=== PATIENT | female | born 2000 | race Caucasian/White ===

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

== ENCOUNTER 2022-01-15 22:47 | Emergency (ER) | payer OTHER ==
[2022-01-15 23:23] VITALS: BP 112/65; PULSE 95; RESP 20; TEMP 100.1; BMI 31.9
[2022-01-15] MEDS ORDERED: KETOROLAC TROMETHAMINE 15 MG/ML VIAL IVPUSH ONE (23:45)
[2022-01-15] MEDS ORDERED: LACTATED RINGERS SOLUTION 1000 ML INFUS.BAG IV ONE (23:45)
[2022-01-16 00:16] LABS: BASO % 0.7 % (0-2.0); EOS % 1.2 % (0-4.5); HEMATOCRIT 31.7 % (32.4-45.2); MCH 22.4 pg (25.7-33.7); MCHC 31.6 g/dl (32.0-36.0); MEAN CELL VOLUME 70.8 fl (80-96); MONO % 16.8 % (3.8-10.2); NEUT % 53.3 % (42.8-82.8); PLATELET COUNT 316 10^3/uL (134-434); RBC 4.48 M/mm3 (3.60-5.2); RDW 17.7 % (11.6-15.6); WHITE BLOOD COUNT 5.2 K/mm3 (4.0-10.0)
[2022-01-16 00:31] LABS: ALBUMIN 3.4 g/dl (3.4-5.0); BLOOD UREA NITROGEN 6.2 mg/dL (7-18); CALCIUM 8.9 mg/dL (8.5-10.1)
[2022-01-16 00:35] LABS: CREATININE 0.6 mg/dL (0.55-1.3)
[2022-01-16 00:37] LABS: BILIRUBIN,TOTAL 0.3 mg/dL (0.2-1)
[2022-01-16] MEDS ORDERED: KETOROLAC TROMETHAMINE 15 MG/ML VIAL ONE (00:39)
[2022-01-16] MEDS ORDERED: LIDOCAINE VISCOUS 2% ORAL/TOP 15 ML UNIT-DOSE CUP MM ONE (01:18)
[2022-01-16] MEDS ORDERED: MAG HYDROX/AL HYDROX/SIMETH 30 ML UNIT-DOSE CUP PO ONE (01:19)
[2022-01-16] MEDS ORDERED: LIDOCAINE VISCOUS 2% ORAL/TOP 15 ML UNIT-DOSE CUP ONE (01:24)
[2022-01-16] MEDS ORDERED: MAG HYDROX/AL HYDROX/SIMETH 30 ML UNIT-DOSE CUP ONE (01:25)
== END 2022-01-16 02:47 | disposition home or self-care (01) ==
LOC: JER 22:47
PROC: 3E033GC Introduction of Other Therapeutic Substance into Peripheral Vein, Percutaneous Approach (ICD-10-PCS; principal; 2022-01-15)
DX: J02.0 Streptococcal pharyngitis (principal); K12.30 Oral mucositis (ulcerative), unspecified
CPT/HCPCS: 0241U-QW; 36415; 71046-TC-FY; 80053; 84703; 85025; 87651; 93005; 93010; 99285-25

== ENCOUNTER 2022-04-19 12:16 | Emergency (ER) | payer OTHER ==
[2022-04-19 12:56] VITALS: BP 137/78; PULSE 114; RESP 22; TEMP 98.2; BMI 31.2
== END 2022-04-19 17:27 | disposition left against medical advice (07) ==
LOC: JER 12:16
DX: R07.9 Chest pain, unspecified (principal); F41.9 Anxiety disorder, unspecified
CPT/HCPCS: 93005; 93010; 99283-25

== ENCOUNTER 2022-09-03 12:05 | Emergency (ER) | payer OTHER ==
[2022-09-03] MEDS ORDERED: SODIUM CHLORIDE 0.9% 500 ML INFUS.BAG IV ONE (12:20)
[2022-09-03] MEDS ORDERED: ONDANSETRON 4 MG/2 ML VIAL IVPUSH ONE (12:20)
[2022-09-03 12:21] VITALS: TEMP 98.9; BMI 27.3
[2022-09-03] MEDS ORDERED: ONDANSETRON 4 MG/2 ML VIAL ONE (12:35)
[2022-09-03 13:22] LABS: BASO % 0.6 % (0-2.0); EOS % 1.7 % (0-4.5); HEMATOCRIT 30.5 % (32.4-45.2); HEMOGLOBIN 9.8 GM/dL (10.7-15.3); MCH 21.8 pg (25.7-33.7); MCHC 32.1 g/dl (32.0-36.0); MEAN CELL VOLUME 67.8 fl (80-96); MEAN PLT VOLUME 7.7 fl (7.5-11.1); MONO % 9.6 % (3.8-10.2); NEUT % 65.1 % (42.8-82.8); PLATELET COUNT 363 10^3/uL (134-434); RDW 18.5 % (11.6-15.6); WHITE BLOOD COUNT 7.7 K/mm3 (4.0-10.0)
[2022-09-03 13:40] LABS: POTASSIUM 3.9 mmol/L (3.5-5.1)
[2022-09-03 13:43] LABS: ALBUMIN 3.4 g/dl (3.4-5.0); BLOOD UREA NITROGEN 8.8 mg/dL (7-18); MAGNESIUM 2.3 mg/dL (1.8-2.4)
[2022-09-03 13:45] LABS: ANISOCYTOSIS 1+; MACROCYTOSIS 0
[2022-09-03 13:46] LABS: CREATININE 0.6 mg/dL (0.55-1.3)
[2022-09-03 13:47] LABS: BILIRUBIN,TOTAL 0.3 mg/dL (0.2-1); TOT PROT 7.4 g/dl (6.4-8.2)
[2022-09-03 13:48] LABS: LACTIC ACID 2.1 mmol/L (0.4-2.0)
[2022-09-03] MEDS ORDERED: LORazepam 2 MG/ML SDV VIAL IVPUSH ONE (14:58)
[2022-09-03 16:25] VITALS: BP 111/61; PULSE 68; RESP 12
== END 2022-09-03 16:54 | disposition home or self-care (01) ==
LOC: JER 12:05
PROC: 3E033NZ Introduction of Analgesics, Hypnotics, Sedatives into Peripheral Vein, Percutaneous Approach (ICD-10-PCS; principal; 2022-09-03)
PROC: 3E033GC Introduction of Other Therapeutic Substance into Peripheral Vein, Percutaneous Approach (ICD-10-PCS; 2022-09-03)
DX: R56.9 Unspecified convulsions (principal)
CPT/HCPCS: 36415; 80053; 82962; 83605; 83735; 84146; 84443; 84703; 85025; 93005; 93010; 99284-25

== ENCOUNTER 2023-01-17 15:01 | Emergency (ER) | payer OTHER ==
[2023-01-17 15:09] VITALS: BMI 31.1
[2023-01-17 15:39] LABS: BASO % 0.6 % (0-2.0); EOS % 0.8 % (0-4.5); HEMATOCRIT 34.5 % (32.4-45.2); LYMPH % 20.9 % (8-40); MCH 24.4 pg (25.7-33.7); MCHC 31.9 g/dl (32.0-36.0); MEAN CELL VOLUME 76.6 fl (80-96); MEAN PLT VOLUME 7.7 fl (7.5-11.1); MONO % 9.4 % (3.8-10.2); NEUT % 68.3 % (42.8-82.8); PLATELET COUNT 382 10^3/uL (134-434); RBC 4.51 M/mm3 (3.60-5.2); RDW 18.2 % (11.6-15.6)
[2023-01-17 15:42] LABS: EPI CELLS >36 /uL (0-25.1); HYALINE CASTS 56 /uL (0-3.1); PH,URINE 5.5 (5.0-8.0); URINE APPEARANCE TURBID; URINE BACTERIA 409 /uL (0-1359); URINE BILIRUBIN NEGATIVE (NEGATIVE); URINE COLOR YELLOW; URINE GLUCOSE (UA) NEGATIVE (NEGATIVE); URINE KETONE TRACE (NEGATIVE); URINE LEUK ESTERASE 2+ (NEGATIVE); URINE NITRITE NEGATIVE (NEGATIVE); URINE PROTEIN TRACE (NEGATIVE); URINE WBC 319 /uL (0-25.8)
[2023-01-17 16:17] LABS: PH,URINE 5.5 (5.0-8.0); URINE APPEARANCE TURBID; URINE BILIRUBIN NEGATIVE (NEGATIVE); URINE COLOR YELLOW; URINE GLUCOSE (UA) NEGATIVE (NEGATIVE); URINE KETONE TRACE (NEGATIVE); URINE LEUK ESTERASE NEGATIVE (NEGATIVE); URINE NITRITE NEGATIVE (NEGATIVE); URINE PROTEIN TRACE (NEGATIVE); URINE UROBILINOGEN 0.2 mg/dL (0.2-1.0)
[2023-01-17 16:22] LABS: POTASSIUM 3.9 mmol/L (3.5-5.1)
[2023-01-17 16:24] LABS: CALCIUM 9.1 mg/dL (8.5-10.1)
[2023-01-17 16:25] LABS: ALBUMIN 3.7 g/dl (3.4-5.0); BLOOD UREA NITROGEN 9.8 mg/dL (7-18)
[2023-01-17 16:29] LABS: CREATININE 0.5 mg/dL (0.55-1.3)
[2023-01-17 16:30] LABS: BILIRUBIN,TOTAL 0.2 mg/dL (0.2-1); TOT PROT 7.5 g/dl (6.4-8.2)
[2023-01-17 16:39] LABS: URINE CRYSTALS MODERATE /hpf; URINE RBC 26.8 /uL (0-23.9)
[2023-01-17 19:33] VITALS: BP 126/71; PULSE 76; RESP 18; TEMP 98
== END 2023-01-17 19:37 | disposition home or self-care (01) ==
LOC: JER 15:01
DX: O20.9 Hemorrhage in early pregnancy, unspecified (principal); O23.511 Infections of cervix in pregnancy, first trimester; O26.891 Other specified pregnancy related conditions, first trimester; R10.30 Lower abdominal pain, unspecified; R11.0 Nausea; N76.89 Other specified inflammation of vagina and vulva
CPT/HCPCS: 36415; 76817-TC; 80053; 81003; 84702; 85025; 86850; 86900; 86901; 87070; 87086; 87205; 87491; 87591; 87661; 99284-25

== ENCOUNTER 2023-01-31 10:52 | Emergency (ER) | payer OTHER ==
[2023-01-31 10:58] VITALS: BP 116/62; PULSE 84; RESP 18; TEMP 98; BMI 31.1
[2023-01-31 11:36] LABS: BASO % 0.7 % (0-2.0); EOS % 1.3 % (0-4.5); HEMATOCRIT 31.7 % (32.4-45.2); HEMOGLOBIN 10.5 GM/dL (10.7-15.3); LYMPH % 25.5 % (8-40); MCH 25.9 pg (25.7-33.7); MCHC 33.3 g/dl (32.0-36.0); MEAN CELL VOLUME 77.7 fl (80-96); MEAN PLT VOLUME 7.6 fl (7.5-11.1); MONO % 7.6 % (3.8-10.2); NEUT % 64.9 % (42.8-82.8); PLATELET COUNT 361 10^3/uL (134-434); RBC 4.08 M/mm3 (3.60-5.2); WHITE BLOOD COUNT 9.5 K/mm3 (4.0-10.0)
[2023-01-31 11:40] LABS: EPI CELLS 16 /uL (0-25.1); HYALINE CASTS 1 /uL (0-3.1); PH,URINE 5.5 (5.0-8.0); URINE APPEARANCE CLEAR; URINE BACTERIA 72 /uL (0-1359); URINE BILIRUBIN NEGATIVE (NEGATIVE); URINE COLOR YELLOW; URINE GLUCOSE (UA) NEGATIVE (NEGATIVE); URINE KETONE NEGATIVE (NEGATIVE); URINE LEUK ESTERASE 1+ (NEGATIVE); URINE NITRITE NEGATIVE (NEGATIVE); URINE PROTEIN NEGATIVE (NEGATIVE); URINE RBC 14 /uL (0-23.9); URINE UROBILINOGEN 0.2 mg/dL (0.2-1.0); URINE WBC 30 /uL (0-25.8)
[2023-01-31 11:57] LABS: POTASSIUM 3.3 mmol/L (3.5-5.1)
[2023-01-31 11:58] LABS: CALCIUM 8.9 mg/dL (8.5-10.1)
[2023-01-31 11:59] LABS: ALBUMIN 3.2 g/dl (3.4-5.0); BLOOD UREA NITROGEN 7.5 mg/dL (7-18)
[2023-01-31 12:02] LABS: CREATININE 0.5 mg/dL (0.55-1.3)
[2023-01-31 12:04] LABS: BILIRUBIN,TOTAL 0.1 mg/dL (0.2-1)
== END 2023-01-31 14:40 | disposition home or self-care (01) ==
LOC: JER 10:52
DX: O20.9 Hemorrhage in early pregnancy, unspecified (principal); Z3A.01 Less than 8 weeks gestation of pregnancy
CPT/HCPCS: 36415; 76817-TC; 80053; 81003; 84702; 84703; 85025; 87086; 99284-25

== ENCOUNTER 2023-03-23 16:06 | Emergency (ER) | payer OTHER ==
[2023-03-23 16:46] VITALS: RESP 18; TEMP 98.2; BMI 32.1
[2023-03-23 17:25] LABS: EPI CELLS >36 /uL (0-25.1); HYALINE CASTS 3 /uL (0-3.1); PH,URINE 6.5 (5.0-8.0); URINE APPEARANCE CLOUDY; URINE BACTERIA 3829 /uL (0-1359); URINE BILIRUBIN NEGATIVE (NEGATIVE); URINE COLOR YELLOW; URINE GLUCOSE (UA) NEGATIVE (NEGATIVE); URINE KETONE 1+ (NEGATIVE); URINE LEUK ESTERASE 3+ (NEGATIVE); URINE NITRITE NEGATIVE (NEGATIVE); URINE PROTEIN NEGATIVE (NEGATIVE); URINE UROBILINOGEN 0.2 mg/dL (0.2-1.0); URINE WBC 347 /uL (0-25.8)
[2023-03-23] MEDS ORDERED: ACETAMINOPHEN 325 MG TABLET (FP) ONE (18:37)
[2023-03-23] MEDS: ACETAMINOPHEN 325 MG TABLET (FP) PO ONE (18:41)
[2023-03-23 19:23] LABS: BASO % 0.8 % (0-2.0); EOS % 1.7 % (0-4.5); HEMATOCRIT 31.7 % (32.4-45.2); HEMOGLOBIN 10.6 GM/dL (10.7-15.3); LYMPH % 25.3 % (8-40); MCH 26.5 pg (25.7-33.7); MCHC 33.3 g/dl (32.0-36.0); MEAN CELL VOLUME 79.7 fl (80-96); MEAN PLT VOLUME 7.6 fl (7.5-11.1); MONO % 10.8 % (3.8-10.2); NEUT % 61.4 % (42.8-82.8); PLATELET COUNT 353 10^3/uL (134-434); RBC 3.98 M/mm3 (3.60-5.2); RDW 16.8 % (11.6-15.6); WHITE BLOOD COUNT 9.2 K/mm3 (4.0-10.0)
[2023-03-23] MEDS ORDERED: CEPHALEXIN MONOHYDRATE 500 MG CAPSULE (UD) ONE (19:42)
[2023-03-23] MEDS: CEPHALEXIN MONOHYDRATE 500 MG CAPSULE (UD) PO ONE (19:47)
[2023-03-23 19:48] LABS: POTASSIUM 3.2 mmol/L (3.5-5.1)
[2023-03-23 19:50] LABS: CALCIUM 9.1 mg/dL (8.5-10.1)
[2023-03-23 19:51] LABS: BLOOD UREA NITROGEN 5.3 mg/dL (7-18)
[2023-03-23 19:53] LABS: CREATININE 0.4 mg/dL (0.55-1.3)
[2023-03-23 19:55] LABS: BILIRUBIN,TOTAL 0.2 mg/dL (0.2-1); TOT PROT 6.8 g/dl (6.4-8.2)
[2023-03-23 22:21] VITALS: BP 115/71; PULSE 80
[2023-03-23 22:47] LABS: URINE RBC 14.3 /uL (0-23.9)
== END 2023-03-23 22:22 | disposition home or self-care (01) ==
LOC: JER 16:06
DX: O26.892 Other specified pregnancy related conditions, second trimester (principal); R10.2 Pelvic and perineal pain; R10.31 Right lower quadrant pain; O20.9 Hemorrhage in early pregnancy, unspecified; O23.42 Unspecified infection of urinary tract in pregnancy, second trimester; Z3A.14 14 weeks gestation of pregnancy
CPT/HCPCS: 36415; 76801-TC; 80053; 81003; 85025; 87086; 99284-25

== ENCOUNTER 2023-05-04 20:25 | Emergency (ER) | payer OTHER ==
[2023-05-04 20:34] VITALS: BP 108/57; PULSE 77; RESP 20; TEMP 98.5; BMI 33.6
[2023-05-04 20:57] LABS: EPI CELLS >36 /uL (0-25.1); HYALINE CASTS 0 /uL (0-3.1); URINE APPEARANCE CLOUDY; URINE BACTERIA 1764 /uL (0-1359); URINE BILIRUBIN NEGATIVE (NEGATIVE); URINE COLOR YELLOW; URINE GLUCOSE (UA) NEGATIVE (NEGATIVE); URINE KETONE NEGATIVE (NEGATIVE); URINE LEUK ESTERASE 1+ (NEGATIVE); URINE NITRITE NEGATIVE (NEGATIVE); URINE PROTEIN NEGATIVE (NEGATIVE); URINE RBC 5 /uL (0-23.9); URINE UROBILINOGEN 0.2 mg/dL (0.2-1.0); URINE WBC 77 /uL (0-25.8)
[2023-05-04] MEDS ORDERED: CEPHALEXIN MONOHYDRATE 500 MG CAPSULE (UD) ONE (21:18)
[2023-05-04] MEDS ORDERED: METOCLOPRAMIDE HCL INJECTION 10 MG/2 ML VIAL ONE (21:18)
[2023-05-04] MEDS: CEPHALEXIN MONOHYDRATE 500 MG CAPSULE (UD) PO ONE (21:38)
[2023-05-04] MEDS: METOCLOPRAMIDE HCL INJECTION 10 MG/2 ML VIAL IVPUSH ONE (21:38)
[2023-05-04] MEDS: LACTATED RINGERS SOLUTION 1000 ML INFUS.BAG IV ONE (21:38)
[2023-05-04 21:49] LABS: BASO % 0.7 % (0-2.0); EOS % 1.4 % (0-4.5); HEMATOCRIT 31.1 % (32.4-45.2); HEMOGLOBIN 10.3 GM/dL (10.7-15.3); LYMPH % 22.7 % (8-40); MCH 26.3 pg (25.7-33.7); MCHC 33.3 g/dl (32.0-36.0); MEAN CELL VOLUME 78.9 fl (80-96); MEAN PLT VOLUME 7.6 fl (7.5-11.1); MONO % 12.6 % (3.8-10.2); NEUT % 62.6 % (42.8-82.8); PLATELET COUNT 307 10^3/uL (134-434); RBC 3.93 M/mm3 (3.60-5.2); RDW 15.5 % (11.6-15.6); WHITE BLOOD COUNT 8.8 K/mm3 (4.0-10.0)
[2023-05-04 22:06] LABS: POTASSIUM 3.4 mmol/L (3.5-5.1)
[2023-05-04 22:09] LABS: CALCIUM 9.3 mg/dL (8.5-10.1)
[2023-05-04 22:10] LABS: ALBUMIN 2.7 g/dl (3.4-5.0); BLOOD UREA NITROGEN 6.8 mg/dL (7-18)
[2023-05-04 22:13] LABS: CREATININE 0.5 mg/dL (0.55-1.3)
[2023-05-04 22:14] LABS: BILIRUBIN,TOTAL 0.2 mg/dL (0.2-1); TOT PROT 6.8 g/dl (6.4-8.2)
[2023-05-04] MEDS: ACETAMINOPHEN 1000 MG/100 ML BAG IVPB ONE (22:24)
== END 2023-05-04 22:45 | disposition left against medical advice (07) ==
LOC: JER 20:25
PROC: 3E033GC Introduction of Other Therapeutic Substance into Peripheral Vein, Percutaneous Approach (ICD-10-PCS; principal; 2023-05-04)
DX: O26.892 Other specified pregnancy related conditions, second trimester (principal); R10.30 Lower abdominal pain, unspecified; O21.9 Vomiting of pregnancy, unspecified; O99.891 Other specified diseases and conditions complicating pregnancy; R50.9 Fever, unspecified; O23.41 Unspecified infection of urinary tract in pregnancy, first trimester; Z3A.20 20 weeks gestation of pregnancy
CPT/HCPCS: 36415; 80053; 81003; 85025; 87086; 96374; 99284-25

== ENCOUNTER 2023-07-13 23:51 | Emergency (ER) | payer OTHER ==
[2023-07-14 00:01] VITALS: BMI 34.9
[2023-07-14 01:32] LABS: BASO % 0.7 % (0-2.0); EOS % 1.6 % (0-4.5); HEMATOCRIT 27.8 % (32.4-45.2); HEMOGLOBIN 9.1 GM/dL (10.7-15.3); LYMPH % 22.5 % (8-40); MCH 24.7 pg (25.7-33.7); MCHC 32.8 g/dl (32.0-36.0); MEAN CELL VOLUME 75.2 fl (80-96); MEAN PLT VOLUME 7.6 fl (7.5-11.1); MONO % 13.9 % (3.8-10.2); NEUT % 61.3 % (42.8-82.8); PLATELET COUNT 303 10^3/uL (134-434); RDW 17.1 % (11.6-15.6); WHITE BLOOD COUNT 9.6 K/mm3 (4.0-10.0)
[2023-07-14] MEDS ORDERED: ACETAMINOPHEN 325 MG TABLET (FP) ONE (01:36)
[2023-07-14 01:41] LABS: INR 1.11 (0.83-1.09); PROTHROMBIN TIME (PATIENT) 12.5 SEC (9.7-13.0)
[2023-07-14 01:43] LABS: ACTIVATED PTT 31.6 SECONDS (25.2-36.5)
[2023-07-14] MEDS: ACETAMINOPHEN 1000 MG/100 ML BAG IVPB ONE (01:48)
[2023-07-14] MEDS: ACETAMINOPHEN 500 MG TABLET (FP) PO ONE (01:48)
[2023-07-14 01:52] LABS: POTASSIUM 3.2 mmol/L (3.5-5.1)
[2023-07-14 01:53] LABS: CALCIUM 8.5 mg/dL (8.5-10.1)
[2023-07-14 01:54] LABS: ALBUMIN 2.3 g/dl (3.4-5.0); BLOOD UREA NITROGEN 5.2 mg/dL (7-18); MAGNESIUM 1.7 mg/dL (1.8-2.4)
[2023-07-14 01:57] LABS: CREATININE 0.5 mg/dL (0.55-1.3)
[2023-07-14 01:58] LABS: TOT PROT 6.2 g/dl (6.4-8.2)
[2023-07-14 01:59] LABS: BILIRUBIN,TOTAL 0.2 mg/dL (0.2-1)
[2023-07-14 04:10] LABS: N-TERMINAL BNP 21.6 pg/ml (5-125)
[2023-07-14] MEDS ORDERED: MAGNESIUM 1GM/D5W - 1 GM/100 ML IVPB IVPB ONE (04:25)
[2023-07-14] MEDS ORDERED: POTASSIUM CHLORIDE ORAL LIQUID 20 MEQ/15 ML ONE (04:25)
[2023-07-14] MEDS: POTASSIUM CHLORIDE ORAL LIQUID 20 MEQ/15 ML PO ONE (04:45)
[2023-07-14 04:54] LABS: EPI CELLS 14 /uL (0-25.1); HYALINE CASTS 0 /uL (0-3.1); PH,URINE 6.5 (5.0-8.0); URINE APPEARANCE CLEAR; URINE BACTERIA 294 /uL (0-1359); URINE BILIRUBIN NEGATIVE (NEGATIVE); URINE COLOR YELLOW; URINE GLUCOSE (UA) TRACE (NEGATIVE); URINE KETONE NEGATIVE (NEGATIVE); URINE LEUK ESTERASE 1+ (NEGATIVE); URINE NITRITE NEGATIVE (NEGATIVE); URINE PROTEIN NEGATIVE (NEGATIVE); URINE RBC 6 /uL (0-23.9); URINE UROBILINOGEN 0.2 mg/dL (0.2-1.0); URINE WBC 29 /uL (0-25.8)
[2023-07-14 06:43] VITALS: BP 108/53; PULSE 62; RESP 18; TEMP 98
[2023-07-14] MEDS ORDERED: CEPHALEXIN MONOHYDRATE 500 MG CAPSULE (UD) ONE (06:44)
[2023-07-14] MEDS: CEPHALEXIN MONOHYDRATE 500 MG CAPSULE (UD) PO ONE (06:49)
== END 2023-07-14 07:01 | disposition home or self-care (01) ==
LOC: JER 23:51
PROC: 3E033GC Introduction of Other Therapeutic Substance into Peripheral Vein, Percutaneous Approach (ICD-10-PCS; principal; 2023-07-14)
DX: O23.43 Unspecified infection of urinary tract in pregnancy, third trimester (principal); O99.283 Endocrine, nutritional and metabolic diseases complicating pregnancy, third trimester; E83.42 Hypomagnesemia; E87.6 Hypokalemia; O99.893 Other specified diseases and conditions complicating puerperium; R06.02 Shortness of breath; R07.9 Chest pain, unspecified; O26.893 Other specified pregnancy related conditions, third trimester; R10.30 Lower abdominal pain, unspecified; Z3A.30 30 weeks gestation of pregnancy; Z20.822 Contact with and (suspected) exposure to COVID-19
CPT/HCPCS: 0241U-QW; 36415; 71045-TC-FY; 71275-TC; 80053; 81003; 83735; 83880; 84484; 85025; 85379; 85610; 85730; 87086; 93005; 93010; 99285-25

== ENCOUNTER 2023-09-13 19:20 | Inpatient (IN) | payer OTHER ==
[2023-09-13] MEDS: ELECTROLYTE-148 SOLN 1,000 ML IV SCH (20:00)
[2023-09-13 20:46] LABS: BASO % 0.7 % (0-2.0); EOS % 0.3 % (0-4.5); HEMATOCRIT 26.4 % (32.4-45.2); HEMOGLOBIN 8.5 GM/dL (10.7-15.3); LYMPH % 16.1 % (8-40); MCHC 32.1 g/dl (32.0-36.0); MEAN CELL VOLUME 71.8 fl (80-96); MEAN PLT VOLUME 8.1 fl (7.5-11.1); MONO % 7.6 % (3.8-10.2); NEUT % 75.3 % (42.8-82.8); PLATELET COUNT 326 10^3/uL (134-434); RBC 3.68 M/mm3 (3.60-5.2); RDW 18.3 % (11.6-15.6); WHITE BLOOD COUNT 10.1 K/mm3 (4.0-10.0)
[2023-09-13 21:00] LABS: INR 1.03 (0.83-1.09); PROTHROMBIN TIME (PATIENT) 11.6 SEC (9.7-13.0)
[2023-09-13 21:03] LABS: ACTIVATED PTT 30.6 SECONDS (25.2-36.5); CHLORIDE 109 mmol/L (98-107); POTASSIUM 3.7 mmol/L (3.5-5.1); SODIUM 138 mmol/L (136-145)
[2023-09-13 21:05] LABS: ANION GAP 11 mmol/L (4-13); CALCIUM 8.7 mg/dL (8.5-10.1); CO2 18 mmol/L (21-32); GLUCOSE,RANDOM 111 mg/dL (74-106)
[2023-09-13 21:06] LABS: BLOOD UREA NITROGEN 6.6 mg/dL (7-18)
[2023-09-13 21:09] LABS: CREATININE 0.7 mg/dL (0.55-1.3)
[2023-09-13] MEDS ORDERED: OXYTOCIN 30 UNITS in 0.9% NS 30 UNIT/500 ML INFUS.BAG IVPB ONE (21:51)
[2023-09-13] MEDS: OXYTOCIN 30 UNITS in 0.9% NS 30 UNIT/500 ML INFUS.BAG IVPB SCH (22:00)
[2023-09-13 23:11] VITALS: BMI 38.3
[2023-09-14] MEDS ORDERED: BUTORPHANOL TARTRATE 2 MG/ML VIAL ONE (03:05)
[2023-09-14] MEDS ORDERED: PROMETHAZINE HCL 25 MG/1 ML VIAL ONE (03:05)
[2023-09-14] MEDS: PROMETHAZINE HCL 25 MG/1 ML VIAL IVPB ONE (03:15)
[2023-09-14] MEDS: BUTORPHANOL TARTRATE 2 MG/ML VIAL IVPB ONE (03:15)
[2023-09-14] MEDS ORDERED: FENTANYL/BUPIVACAINE/NS/PF - PCEA - 50 ML DISP.SYRIN EP ONE ×2 (07:01→10:46)
[2023-09-14] MEDS ORDERED: NALOXONE HCL 0.4 MG/ML VIAL IVPUSH PRN (07:35)
[2023-09-14] MEDS ORDERED: BUPIVACAINE HCL/PF 0.25% (2.5MG/ML) 10 ML VIAL ONE (07:37)
[2023-09-14] MEDS: FENTANYL/BUPIVACAINE/NS/PF - PCEA - 50 ML DISP.SYRIN EP SCH (07:55)
[2023-09-14] MEDS ORDERED: OXYTOCIN 20 UNITS in 0.9% NS 20 UNIT/1,000 ML INFUS.BAG IV ONE (09:51)
[2023-09-14] MEDS ORDERED: FENTANYL CITRATE/PF 50 MCG/ML VIAL ONE (11:06)
[2023-09-14] MEDS ORDERED: PENICILLIN G POTASSIUM 5,000,000 UNIT/250 ML BAG IVPB ONE (17:55)
[2023-09-14 18:21] VITALS: RESP 18
[2023-09-15] MEDS ORDERED: ACETAMINOPHEN 325 MG TABLET (FP) PO PRN (08:28)
[2023-09-15] MEDS: IBUPROFEN 600 MG TABLET (FP) PO PRN (09:33)
[2023-09-15] MEDS: BENZOCAINE 20% 57 GM BOTTLE TP PRN (09:33)
[2023-09-15 10:45] LABS: HEMATOCRIT 21.4 % (32.4-45.2); MCH 22.7 pg (25.7-33.7); MCHC 31.6 g/dl (32.0-36.0); MEAN CELL VOLUME 71.8 fl (80-96); PLATELET COUNT 255 10^3/uL (134-434); RBC 2.98 M/mm3 (3.60-5.2); RDW 18.9 % (11.6-15.6); WHITE BLOOD COUNT 10.7 K/mm3 (4.0-10.0)
[2023-09-15 10:47] LABS: HEMOGLOBIN 6.8 GM/dL (10.7-15.3)
[2023-09-15] MEDS: IRON SUCROSE INJECTION 200 MG in SODIUM CHLORIDE 100 ML IVPB ONE (11:50)
[2023-09-16 08:49] VITALS: BP 94/51; PULSE 71; TEMP 98.2
[2023-09-16] MEDS: IRON SUCROSE INJECTION 200 MG in SODIUM CHLORIDE 100 ML IVPB ONE (10:21)
== END 2023-09-16 12:54 | disposition home or self-care (01) | DRG 560 ==
LOC: JLDR 19:20 → J3W 09-14 16:50
PROVIDERS: ADMIT Obstetrics & Gynecology; ATTEND Obstetrics & Gynecology
PROC: 10E0XZZ Delivery of Products of Conception, External Approach (ICD-10-PCS; principal; 2023-09-14)
PROC: 0HQ9XZZ Repair Perineum Skin, External Approach (ICD-10-PCS; 2023-09-14)
DX: O71.89 Other specified obstetric trauma (principal); Z3A.39 39 weeks gestation of pregnancy; Z37.0 Single live birth
CPT/HCPCS: 36415; 59409; 80048; 85025; 85027; 85610; 85730; 86780; 86850; 86900; 86901; J1756

== ENCOUNTER 2024-09-25 23:13 | Emergency (ER) | payer OTHER ==
[2024-09-25 23:29] VITALS: BP 118/72; PULSE 61; RESP 16; TEMP 98.4; BMI 35.6
[2024-09-26] MEDS ORDERED: ONDANSETRON *ODT* 4 MG TABLET ONE (00:18)
[2024-09-26] MEDS: ONDANSETRON *ODT* 4 MG TABLET SL ONE (00:23)
== END 2024-09-26 01:18 | disposition home or self-care (01) ==
LOC: JER 23:13
DX: R51.9 Headache, unspecified (principal); R07.9 Chest pain, unspecified; R11.2 Nausea with vomiting, unspecified; R20.2 Paresthesia of skin; R29.898 Other symptoms and signs involving the musculoskeletal system; R68.84 Jaw pain; R06.02 Shortness of breath; Z33.1 Pregnant state, incidental
CPT/HCPCS: 84703; 93005; 93010; 99284-25; Q0162

== ENCOUNTER 2024-10-02 23:17 | Emergency (ER) | payer OTHER ==
[2024-10-02 23:24] VITALS: TEMP 98.6; BMI 34.9
[2024-10-03 00:33] LABS: ABSOLUTE IMMATURE GRANULOCYTES 0.03 x10^3/uL (0.0-0.031); BASOPHILS # 0.05 x10^3/uL (0.01-0.08); EOSINOPHIL % 2.3 % (0.7-5.8); EOSINOPHILS # 0.17 x10^3/uL (0.04-0.36); MCHC 27.9 g/dl (32.2-35.5); MEAN CELL VOLUME 69.9 fl (79.4-94.8); MEAN PLT VOLUME 9.5 fl (9.4-12.3); MONOCYTE # 0.68 x10^3/uL (0.24-0.86); MONOCYTE % 9.1 % (4.7-12.5); RDW 20.0 % (12.1-16.5)
[2024-10-03] MEDS ORDERED: ACETAMINOPHEN INJECTION 100 ML ONE (01:52)
[2024-10-03] MEDS: LACTATED RINGERS SOLUTION 1000 ML INFUS.BAG IV ONE (01:57)
[2024-10-03] MEDS: ACETAMINOPHEN 1000 MG/100 ML BAG IVPB ONE (01:58)
[2024-10-03 02:12] LABS: HCV DIAGNOSTIC IN-HOUSE W/RFLX NON-REACTIVE (NONREACTIVE); HIV INTERPRETATION NEGATIVE (NEGATIVE)
[2024-10-03 02:27] VITALS: BP 120/87; PULSE 80; RESP 19
[2024-10-03 03:05] LABS: TOT PROT 7.5 g/dl (6.4-8.2)
[2024-10-03 03:06] LABS: CO2 18.0 mmol/L (21-32)
[2024-10-03 03:07] LABS: ALK PHOS 113.0 U/L (40-150)
[2024-10-03 03:10] LABS: CREATININE 0.48 mg/dL (0.55-1.3); SGOT/AST 22.0 U/L (5-34); SGPT/ALT 16.0 U/L (0-55)
[2024-10-03 03:25] LABS: GLUCOSE,RANDOM 91.0 mg/dL (74-106)
== END 2024-10-03 02:27 | disposition home or self-care (01) ==
LOC: JER 23:17
PROC: 3E033NZ Introduction of Analgesics, Hypnotics, Sedatives into Peripheral Vein, Percutaneous Approach (ICD-10-PCS; principal; 2024-10-03)
DX: F44.4 Conversion disorder with motor symptom or deficit (principal); R55 Syncope and collapse; M54.2 Cervicalgia; M25.512 Pain in left shoulder; M79.662 Pain in left lower leg
CPT/HCPCS: 36415; 80053; 84484; 85025; 85379; 86803; 87389; 93005; 93010; 99284-25